=== PATIENT | female | born 1990 ===

== ENCOUNTER → 2021-09-11 | Outpatient (CLI) | payer OTHER ==
[2021-09-13 01:08] LABS: CHLAMYDIA TRACHOMATIS, NAA Negative (Negative)
== END ==
LOC: LAB SHORT 10:50
PROVIDERS: Registered Nurse Community Health
DX: Z33.1 Pregnant state, incidental (principal)
CPT/HCPCS: 87491; 87591

== ENCOUNTER 2022-04-08 22:52 | Inpatient (IN) | payer OTHER ==
[~2022-04-08] VITALS: Ht 165.1 cm; Wt 79.0 kg
[2022-04-09 01:27] LABS: BASOPHILS ABSOLUTE AUTO 0.04 K/mm3 (0.00-0.23); BASOPHILS PERCENT AUTO 0 % (0-2); EOSINOPHILS ABSOLUTE AUTO 0.21 K/mm3 (0.00-0.68); EOSINOPHILS PERCENT AUTO 2 % (0-6); Hematocrit 33.8 % (33.0-51.0); Hemoglobin 11.9 g/dL (11.5-16.0); IMMATURE GRAN ABSOLUTE AUTO 0.07 K/mm3 (0.00-0.10); IMMATURE GRAN PERCENT AUTO 1 % (0-1); LYMPHOCYTES PERCENT AUTO 21 % (21-46); MONOCYTES PERCENT AUTO 6 % (4-13); Mean Corpuscular HGB 31.2 pg (26.0-34.0); Mean Corpuscular HGB Conc 35.2 g/dL (31.5-36.5); Mean Corpuscular Volume 89 fL (80-100); Mean Platelet Volume 10.3 fL (9.1-12.4); NEUTROPHILS ABSOLUTE AUTO 7.73 K/mm3 (1.96-9.15); NEUTROPHILS PERCENT AUTO 71 % (41-73); Platelet Count 206 K/mm3 (150-400); RDW Coefficient Variation 11.9 % (11.7-14.2); RDW Standard Deviation 38.5 fL (35.1-46.3); Red Blood Cell Count 3.81 M/mm3 (3.80-5.20); White Blood Cell Count 10.95 K/mm3 (4.00-11.30)
--- NOTE | 2022-04-09 05:56 | NUR ---
PT IN SIGNIFICANT PAIN AFTER DELIVERY. SHE DESCRIBES THE PAIN TO BE 9/10 AND FEELS LIKE CONTRACTIONS. WORSENS WHILE . PT HAD A DIFFICULT TIME FULLY EMPTYING HER BLADDER WHEN SHE FIRST TRIED. SHE WAS GIVEN TORADOL AND PERCOCET FOR PAIN, PER HER REQUEST. SHE DECLINED A HEATING PAD. FUNDUS IS FIRM, MIDLINE AND BELOW UMBILICUS. HER BLEEDING IS SMALL. VS ARE WNL.
[2022-04-09 12:33] LABS: Hematocrit 34.6 % (33.0-51.0); Hemoglobin 11.9 g/dL (11.5-16.0); Mean Corpuscular HGB Conc 34.4 g/dL (31.5-36.5); Mean Corpuscular Volume 90 fL (80-100); Mean Platelet Volume 10.3 fL (9.1-12.4); Platelet Count 209 K/mm3 (150-400); RDW Coefficient Variation 11.9 % (11.7-14.2); RDW Standard Deviation 38.7 fL (35.1-46.3); Red Blood Cell Count 3.84 M/mm3 (3.80-5.20)
--- NOTE | 2022-04-10 16:29 | NUR ---
PT DISCHARGED TO HOME. NO QUESTIONS OR CONCERNS. DISCHARGE INSTRUCTIONS GIVEN. TO FOLLOW UP Wednesday04/13/22 AT 1400 HERE AT [facility] WITH JASBIR. CAR SEAT CHECKED. BANDS MATCHED.
== END 2022-04-10 16:20 | disposition home or self-care (01) | DRG 807 ==
LOC: OBS 22:52 → BC 22:53 → OBS 04-09 00:48 → BC 04-09 00:49
PROVIDERS: ADMIT Registered Nurse Community Health
PROC: 10E0XZZ Delivery of Products of Conception, External Approach (ICD-10-PCS; principal; 2022-04-09)
DX: O48.0 Post-term pregnancy (principal); Z37.0 Single live birth; O99.824 Streptococcus B carrier state complicating childbirth; Z3A.40 40 weeks gestation of pregnancy; Z67.40 Type O blood, Rh positive
CPT/HCPCS: 36415; 59025; 85025; 85027; 86850; 86900; 86901; A9270; J0290; J1885; J2590; J3430; J7120

== ENCOUNTER → 2024-01-06 | Outpatient (CLI) | payer OTHER ==
[2024-01-06 15:39] LABS: BASOPHILS ABSOLUTE AUTO 0.04 K/mm3 (0.00-0.23); BASOPHILS PERCENT AUTO 0 % (0-2); EOSINOPHILS PERCENT AUTO 2 % (0-6); Hematocrit 38.6 % (33.0-51.0); IMMATURE GRAN ABSOLUTE AUTO 0.06 K/mm3 (0.00-0.10); IMMATURE GRAN PERCENT AUTO 1 % (0-1); LYMPHOCYTES ABSOLUTE AUTO 2.22 K/mm3 (0.84-5.20); LYMPHOCYTES PERCENT AUTO 20 % (21-46); MONOCYTES ABSOLUTE AUTO 0.49 K/mm3 (0.16-1.47); MONOCYTES PERCENT AUTO 5 % (4-13); Mean Corpuscular HGB 29.5 pg (26.0-34.0); Mean Corpuscular HGB Conc 33.7 g/dL (31.5-36.5); Mean Corpuscular Volume 88 fL (80-100); Mean Platelet Volume 9.9 fL (9.1-12.4); NEUTROPHILS ABSOLUTE AUTO 7.85 K/mm3 (1.96-9.15); NEUTROPHILS PERCENT AUTO 72 % (41-73); Platelet Count 290 K/mm3 (150-400); RDW Coefficient Variation 11.9 % (11.7-14.2); RDW Standard Deviation 38.1 fL (35.1-46.3); White Blood Cell Count 10.86 K/mm3 (4.00-11.30)
[2024-01-07 16:44] LABS: HEPATITIS B SURFACE ANTIGEN Negative (Negative)
[2024-01-07 17:18] LABS: HEPATITIS C AB CIA INTERP Negative (Negative); HEPATITIS C ANTIBODY CIA INDEX 0.05 IV
[2024-01-07 17:58] LABS: HIV 1,2 COMBO ANTIGEN/ANTIBODY Negative (Negative)
[2024-01-08 12:56] LABS: APTIMA MEDIA TYPE Urine; C. TRACHOMATIS BY TMA Negative (Negative); N. GONORRHOEAE BY TMA Negative (Negative); SPECIMEN SOURCE Urine
== END | disposition home or self-care (01) ==
LOC: LAB 10:30 → LAB SHORT 10:30
PROVIDERS: Registered Nurse Community Health
DX: Z34.93 Encounter for supervision of normal pregnancy, unspecified, third trimester (principal)
CPT/HCPCS: 84443; 86803; 87340; 87389; 87491; 87591

== ENCOUNTER → 2024-06-27 | Outpatient (CLI) | payer OTHER | END | disposition home or self-care (01) | LOC: LAB 16:14 → LAB SHORT 16:14 | DX: Z34.93 Encounter for supervision of normal pregnancy, unspecified, third trimester (principal) | CPT/HCPCS: 87081; 87150 ==

== ENCOUNTER 2024-07-29 02:00 | Inpatient (IN) | payer OTHER ==
[2024-07-29] VITALS (10 sets, daily range): BP systolic 114–136; BP diastolic 61–93
[~2024-07-29] VITALS: Ht 165.1 cm; Wt 82.7 kg
[2024-07-29] MEDS ORDERED: Misoprostol 200 MCG Tab BC PRN (02:25)
[2024-07-29] MEDS ORDERED: Calcium Carbonate 500 MG Tab Chew PO PRN (02:25)
[2024-07-29] MEDS ORDERED: Tranexamic Acid 100 ML IV SCH (02:25)
[2024-07-29] MEDS ORDERED: Ondansetron HCl 2 MG / ML 2ML Vial IV PRN (02:25)
[2024-07-29] MEDS ORDERED: Oxytocin 10 Unit / ML Vial IM PRN (02:25)
[2024-07-29] MEDS ORDERED: Methylergonovine Maleate 0.2MG / ML 1ML Amp IM PRN (02:25)
[2024-07-29] MEDS ORDERED: ePHEDrine Sulfate 50 MG/ML 1ML Injection XX PRN (02:25)
[2024-07-29] MEDS ORDERED: FentaNYL 2mcg/ml-Bup 0.1% Epd 250 ML EPI PRN (02:25)
[2024-07-29] MEDS ORDERED: Carboprost Tromethamine 250 MCG/ML 1ML Amp IM PRN (02:25)
[2024-07-29] MEDS ORDERED: Misoprostol 200 MCG Tab PR PRN (02:25)
[2024-07-29] MEDS ORDERED: OXYTOCIN/RINGER'S LACTATE 500 ML IV PRN (02:25)
[2024-07-29] MEDS ORDERED: Lactated Ringer's 1,000 ML IV PRN ×3 (02:25)
[2024-07-29] MEDS ORDERED: Acetaminophen 500 MG Tab PO PRN (02:25)
[2024-07-29] MEDS ORDERED: FentaNYL Citrate 50 MCG/ML 2 ML Injection IV PRN (02:30)
[2024-07-29] MEDS ORDERED: Penicillin G Potassium 5,000,000 UNITS in NS 250 ML IV ONE (02:30)
[2024-07-29 02:44] LABS: BASOPHILS ABSOLUTE AUTO 0.06 K/mm3 (0.00-0.23); BASOPHILS PERCENT AUTO 0 % (0-2); EOSINOPHILS ABSOLUTE AUTO 0.11 K/mm3 (0.00-0.68); EOSINOPHILS PERCENT AUTO 1 % (0-6); Hematocrit 37.4 % (33.0-51.0); Hemoglobin 13.3 g/dL (11.5-16.0); IMMATURE GRAN PERCENT AUTO 1 % (0-1); LYMPHOCYTES ABSOLUTE AUTO 1.75 K/mm3 (0.84-5.20); LYMPHOCYTES PERCENT AUTO 12 % (21-46); MONOCYTES ABSOLUTE AUTO 0.78 K/mm3 (0.16-1.47); MONOCYTES PERCENT AUTO 5 % (4-13); Mean Corpuscular HGB 30.8 pg (26.0-34.0); Mean Corpuscular HGB Conc 35.6 g/dL (31.5-36.5); Mean Corpuscular Volume 87 fL (80-100); Mean Platelet Volume 10.2 fL (9.1-12.4); NEUTROPHILS ABSOLUTE AUTO 11.64 K/mm3 (1.96-9.15); NEUTROPHILS PERCENT AUTO 81 % (41-73); Platelet Count 218 K/mm3 (150-400); RDW Coefficient Variation 11.9 % (11.7-14.2); RDW Standard Deviation 37.9 fL (35.1-46.3); Red Blood Cell Count 4.32 M/mm3 (3.80-5.20); White Blood Cell Count 14.44 K/mm3 (4.00-11.30)
[2024-07-29] MEDS ORDERED: Penicillin G Potassium 2,500,000 UNITS in Dextrose 5% 100 ML IV SCH (04:00)
[2024-07-29] MEDS ORDERED: Ketorolac Tromethamine 30mg Vial IV PRN ×2 (05:15→05:55)
[2024-07-29] MEDS ORDERED: Lanolin Cream TOP PRN (05:50)
[2024-07-29] MEDS ORDERED: Acetaminophen 325 MG TABLET PO PRN (05:50)
[2024-07-29] MEDS ORDERED: Naproxen 500 MG Tab PO PRN (05:50)
[2024-07-29] MEDS ORDERED: Docusate Sodium 100 MG Cap PO PRN (05:55)
[2024-07-29] MEDS ORDERED: FLU VACC TS2024-25(6MOS UP)/PF 45 MCG/0.5 ML SYRINGE IM ONE (05:55)
[2024-07-29] MEDS ORDERED: Benzocaine Topical Anesthetic Spray 60GM TOP PRN (05:55)
[2024-07-29] MEDS ORDERED: OxyCODONE 5 mg/Acetamin 325 mg TABLET PO PRN (05:55)
[2024-07-29] MEDS ORDERED: Witch Hazel/Glycerin PADS TOP PRN (05:55)
[2024-07-29] MEDS ORDERED: Lactated Ringer's 1,000 ML IV SCH (06:00)
[2024-07-29] MEDS ORDERED: CeFAZolin Sodium 2,000 MG in NS 100 ML IV ONE (06:56)
[2024-07-29] MEDS ORDERED: Prenatal Vit/FE Fumarate/FA 1 Tab PO SCH (09:00)
[2024-07-29] MEDS ORDERED: Ibuprofen 400 MG Tab PO PRN (22:20)
[2024-07-30 01:34] VITALS: BP 103/56
[2024-07-30 03:19] VITALS: BP 120/57
[2024-07-30 06:58] LABS: BASOPHILS ABSOLUTE AUTO 0.03 K/mm3 (0.00-0.23); BASOPHILS PERCENT AUTO 0 % (0-2); EOSINOPHILS ABSOLUTE AUTO 0.13 K/mm3 (0.00-0.68); EOSINOPHILS PERCENT AUTO 2 % (0-6); Hematocrit 32.5 % (33.0-51.0); IMMATURE GRAN ABSOLUTE AUTO 0.08 K/mm3 (0.00-0.10); IMMATURE GRAN PERCENT AUTO 1 % (0-1); LYMPHOCYTES ABSOLUTE AUTO 1.11 K/mm3 (0.84-5.20); LYMPHOCYTES PERCENT AUTO 13 % (21-46); MONOCYTES PERCENT AUTO 8 % (4-13); Mean Corpuscular HGB 30.4 pg (26.0-34.0); Mean Corpuscular HGB Conc 33.8 g/dL (31.5-36.5); Mean Corpuscular Volume 90 fL (80-100); Mean Platelet Volume 10.4 fL (9.1-12.4); NEUTROPHILS ABSOLUTE AUTO 6.56 K/mm3 (1.96-9.15); NEUTROPHILS PERCENT AUTO 76 % (41-73); Platelet Count 195 K/mm3 (150-400); RDW Standard Deviation 39.3 fL (35.1-46.3); Red Blood Cell Count 3.62 M/mm3 (3.80-5.20); White Blood Cell Count 8.61 K/mm3 (4.00-11.30)
[2024-07-30 07:34] VITALS: BP 108/57
[2024-07-30 11:25] VITALS: BP 113/58
--- NOTE | 2024-07-30 11:47 | NUR ---
pt given written and verbal dc instructions. will follow up wednesday with bg dunbar at 11. will also follow up as indicated at [place] office within a few weeks. questions answered
== END 2024-07-30 12:40 | disposition home or self-care (01) | DRG 807 ==
LOC: OBS 02:00 → BC 02:00 → OBS 02:25 → BC 02:27
PROVIDERS: Student in an Organized Health Care Education/Training Program; ADMIT Family Medicine
PROC: 10E0XZZ Delivery of Products of Conception, External Approach (ICD-10-PCS; principal; 2024-07-29)
PROC: 0UQMXZZ Repair Vulva, External Approach (ICD-10-PCS; 2024-07-29)
PROC: 0HQ9XZZ Repair Perineum Skin, External Approach (ICD-10-PCS; 2024-07-29)
DX: O48.0 Post-term pregnancy (principal); Z37.0 Single live birth; O69.81X0 Labor and delivery complicated by cord around neck, without compression, not applicable or unspecified; Z3A.40 40 weeks gestation of pregnancy; O70.0 First degree perineal laceration during delivery
CPT/HCPCS: 85025; 86850; 86900; 86901; 99214; A9270; J0690; J1885; J2540; J7050